=== PATIENT | male | born 1955 | race African-American/Black ===

== ENCOUNTER 2021-02-14 11:09 | Emergency (ER) | payer OTHER ==
[2021-02-14 11:35] VITALS: TEMP 103; BMI 22.5
[2021-02-14] MEDS ORDERED: KETOROLAC TROMETHAMINE 30 MG/1 ML VIAL ONE (12:41)
[2021-02-14 12:43] LABS: VENOUS BASE EXCESS 0.5 mmol/L (-2-2); VENOUS O2 SATURATION 65.7 % (70-80); VENOUS PCO2 41.5 mmHg (38-52); VENOUS PH 7.404 (7.310-7.410)
[2021-02-14] MEDS ORDERED: SODIUM CHLORIDE 1,000 ML IV SCH (12:45)
[2021-02-14] MEDS ORDERED: KETOROLAC TROMETHAMINE 30 MG/1 ML VIAL IM ONE (12:45)
[2021-02-14] MEDS ORDERED: ACETAMINOPHEN 500 MG TABLET (FP) PO ONE (12:45)
[2021-02-14] MEDS ORDERED: ACETAMINOPHEN 500 MG TABLET (FP) ONE (12:47)
[2021-02-14 12:59] LABS: BASO % 0.3 % (0-2.0); HEMATOCRIT 48.8 % (35.4-49); HEMOGLOBIN 16.2 GM/dL (11.7-16.9); LYMPH % 9.6 % (8-40); MCH 29.6 pg (25.7-33.7); MCHC 33.2 g/dl (32.0-35.9); MEAN CELL VOLUME 89.1 fl (80-96); MEAN PLT VOLUME 9.6 fl (7.5-11.1); MONO % 8.6 % (3.8-10.2); NEUT % 81.5 % (42.8-82.8); PLATELET COUNT 188 K/MM3 (134-434); RBC 5.47 M/mm3 (4.00-5.60); RDW 14.8 % (11.9-15.9); WHITE BLOOD COUNT 12.3 K/mm3 (4.0-10.0)
[2021-02-14 13:07] LABS: INR 1.19 (0.83-1.09); PROTHROMBIN TIME (PATIENT) 14.6 SEC (9.7-13.0)
[2021-02-14 13:09] LABS: ACTIVATED PTT 35.5 SECONDS (25.2-36.5)
[2021-02-14 13:16] LABS: CHLORIDE 104 mmol/L (98-107); SODIUM 137 mmol/L (136-145)
[2021-02-14 13:19] LABS: ALBUMIN 3.4 g/dl (3.4-5.0); ANION GAP 6 MMOL/L (8-16); BLOOD UREA NITROGEN 15.1 mg/dL (7-18); CALCIUM 9.2 mg/dL (8.5-10.1); CO2 27 mmol/L (21-32)
[2021-02-14 13:20] LABS: GLUCOSE,RANDOM 139 mg/dL (74-106)
[2021-02-14 13:22] LABS: CREATININE 1.6 mg/dL (0.55-1.3); SGOT/AST 96 U/L (15-37); SGPT/ALT 79 U/L (13-61)
[2021-02-14 13:24] LABS: LDH 436 U/L (87-246)
[2021-02-14 13:25] LABS: ALK PHOS 152 U/L (45-117); BILIRUBIN,TOTAL 1.2 mg/dL (0.2-1); TOT PROT 7.7 g/dl (6.4-8.2)
[2021-02-14] MEDS ORDERED: BAMLANIVIMAB 700 MG, ETESEVIMAB 1,400 MG in SODIUM CHLORIDE 250 ML IVPB ONE (13:44)
[2021-02-14 14:41] LABS: EPI CELLS 17 /uL (0-25.1); HYALINE CASTS 2 /uL (0-3.1); URINE APPEARANCE CLEAR; URINE BACTERIA 14 /uL (0-1359); URINE BILIRUBIN 1+ (NEGATIVE); URINE COLOR DK YELLOW; URINE GLUCOSE (UA) NEGATIVE (NEGATIVE); URINE KETONE 3+ (NEGATIVE); URINE LEUK ESTERASE TRACE (NEGATIVE); URINE NITRITE NEGATIVE (NEGATIVE); URINE PROTEIN 3+ (NEGATIVE); URINE RBC 57 /uL (0-23.9); URINE WBC 9 /uL (0-25.8)
[2021-02-14 16:53] VITALS: BP 106/64; PULSE 80
== END 2021-02-14 18:11 | disposition home or self-care (01) ==
LOC: JER 11:09
DX: U07.1 COVID-19 (principal); R06.02 Shortness of breath
CPT/HCPCS: 36415; 71045-TC-FY; 80053; 81003; 82550; 82553; 82728; 82803; 83605; 83615; 84484; 85025; 85610; 85730; 86140; 87804; 93005; 93010; 99285-25; C9803; M0239; Q0239; Q0245; U0003; U0005

== ENCOUNTER 2023-04-08 08:59 | Emergency (ER) | payer OTHER ==
[2023-04-08 09:28] VITALS: BP 116/89; PULSE 67; RESP 17; TEMP 97.8; BMI 30.7
[2023-04-08] MEDS ORDERED: LIDOCAINE 5% TOPICAL PATCH TP ONE (09:40)
[2023-04-08] MEDS ORDERED: KETOROLAC TROMETHAMINE 30 MG/1 ML VIAL IM ONE (09:40)
[2023-04-08] MEDS ORDERED: ACETAMINOPHEN 500 MG TABLET (FP) PO ONE (09:40)
[2023-04-08] MEDS ORDERED: KETOROLAC TROMETHAMINE 30 MG/1 ML VIAL ONE (09:41)
[2023-04-08] MEDS ORDERED: LIDOCAINE 5% TOPICAL PATCH ONE (09:41)
[2023-04-08] MEDS ORDERED: ACETAMINOPHEN 500 MG TABLET (FP) ONE (09:41)
[2023-04-08] MEDS ORDERED: LIDOCAINE PATCH REMOVAL MC ONE (22:00)
== END 2023-04-08 10:21 | disposition home or self-care (01) ==
LOC: JERFT 08:59 → JER 08:59 → JERFT 10:21
PROC: 3E0233Z Introduction of Anti-inflammatory into Muscle, Percutaneous Approach (ICD-10-PCS; principal; 2023-04-08)
DX: M54.6 Pain in thoracic spine (principal)
CPT/HCPCS: 99284-25

== ENCOUNTER 2024-05-30 20:23 | Emergency (ER) | payer OTHER ==
[2024-05-30 20:28] VITALS: BMI 28.1
[2024-05-30 23:13] LABS: BASO % 0.9 % (0-2.0); HEMATOCRIT 45.2 % (35.4-49); HEMOGLOBIN 15.3 GM/dL (11.7-16.9); MCH 29.5 pg (25.7-33.7); MCHC 33.8 g/dl (32.0-35.9); MEAN CELL VOLUME 87.2 fl (80-96); MEAN PLT VOLUME 7.8 fl (7.5-11.1); MONO % 14.8 % (3.8-10.2); NEUT % 51.3 % (42.8-82.8); PLATELET COUNT 304 10^3/uL (134-434); RBC 5.18 M/mm3 (4.00-5.60); RDW 14.2 % (11.9-15.9); WHITE BLOOD COUNT 6.2 K/mm3 (4.0-10.0)
[2024-05-30 23:18] LABS: INR 1.06 (0.83-1.09); PROTHROMBIN TIME (PATIENT) 12.2 SEC (9.7-13.0)
[2024-05-30 23:21] LABS: ACTIVATED PTT 32.7 SECONDS (25.2-36.5)
[2024-05-30 23:33] LABS: POTASSIUM 4.7 mmol/L (3.5-5.1)
[2024-05-30 23:35] LABS: CALCIUM 9.4 mg/dL (8.5-10.1)
[2024-05-30 23:36] LABS: ALBUMIN 3.8 g/dl (3.4-5.0); BLOOD UREA NITROGEN 13.7 mg/dL (7-18)
[2024-05-30 23:39] LABS: CREATININE 1.4 mg/dL (0.55-1.3)
[2024-05-30 23:41] LABS: TOT PROT 8.1 g/dl (6.4-8.2)
[2024-05-30 23:59] LABS: ERYTHROCYTE SEDIMENTATION RATE 17 mm/hr (0-20)
[2024-05-31 00:56] VITALS: BP 163/72; PULSE 70; RESP 15; TEMP 98.3
== END 2024-05-31 02:55 | disposition home or self-care (01) ==
LOC: JERFT 20:23 → JER 20:23
DX: M79.89 Other specified soft tissue disorders (principal); R59.0 Localized enlarged lymph nodes; M79.661 Pain in right lower leg; M79.662 Pain in left lower leg
CPT/HCPCS: 36415; 73610-TC-RT-FY; 73630-TC-RT-FY; 80053; 85025; 85610; 85651; 85730; 93970-TC; 99285-25